=== PATIENT | male | born 1975 | race Caucasian/White ===

== ENCOUNTER 2016-10-20 15:33 | Emergency (ER) | payer BC ==
[2016-10-20] MEDS ORDERED: methylPREDNISolone Sodium Succinate 125 MG/2 ML SDV IM ONE (16:22)
--- NOTE | 2016-10-20 16:22 | EDM.PDOC ---
ED HPI GENERAL MEDICAL PROBLEM - General Chief Complaint: Respiratory Problem Stated Complaint: pain in between my shoulders, with breathing Time Seen by Provider: 10/20/16 15:40 Source of Information: Reports: Patient History Limitations: Reports: No Limitations - History of Present Illness Onset: Today, Gradual Duration: Hour(s): Location: Reports: Chest Quality: Reports: Stabbing Severity: Moderate Worsens with: Reports: Breathing Associated Symptoms: Reports: cough w sputum - Related Data Allergies Allergy/AdvReac Type Severity Reaction Status Date / Time No Known Allergies Allergy Verified 10/20/16 15:36 Home Meds: Home Meds Aspirin 325 mg PO DAILY 10/20/16 [History] Atenolol [Atenolol] 25 mg PO DAILY 10/20/16 [History] FLUoxetine [PROzac] 40 mg PO DAILY 10/20/16 [History] Ibuprofen 400 mg PO Q6H PRN 10/20/16 [History] Past Medical History HEENT History: Reports: Impaired Vision Cardiovascular History: Reports: Afib, Hypertension Respiratory History: Reports: Other (See Below) Other Respiratory History: pt has had cough for about 4 days, today starting with blood in sputum, 1.5 ppd smoker Musculoskeletal History: Reports: None 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 Social & Family History - Family History Family Medical History: Noncontributory HEENT: Reports: None Cardiac: Reports: Afib Respiratory: Reports: None GI: Reports: None : Reports: None OBGYN: Reports: None Musculoskeletal: Reports: None Neurological: Reports: None Psychiatric: Reports: None Endocrine/Metabolic: Reports: None Hematologic: Reports: None Immunologic: Reports: None Dermatologic: Reports: None Oncologic: Reports: None ED ROS GENERAL - Review of Systems Review Of Systems: See Below HEENT: Reports: No Symptoms Respiratory: Reports: Shortness of Breath, Cough, Other (Pain is worse with cough and depp breath. Pain is in same place each time) Cardiovascular: Reports: No Symptoms GI/Abdominal: Reports: No Symptoms ED EXAM, GENERAL - Physical Exam Exam: See Below Exam Limited By: No Limitations Throat/Mouth: Normal Oropharynx Neck: Supple Respiratory/Chest: Lungs Clear, Chest Non-Tender Cardiovascular: Regular Rate, Rhythm GI/Abdominal: Soft Back Exam: Normal Inspection Course - Orders/Labs/Meds Orders: Active Orders 24 hr Category Date Time Status EKG Documentation Completion [RC] ASDIRECTED Care 10/20/16 15:59 Active EKG Documentation Completion [RC] STAT Care 10/20/16 15:46 Active Chest 2V [CR] Stat Exams 10/20/16 15:47 Taken Labs: Laboratory Tests 10/20/16 Range/Units 15:50 WBC 7.9 (4.0-10.2) K/uL RBC 4.65 (4.33-5.41) M/uL Hgb 14.6 (13.1-16.8) g/dL Hct 41.6 (39.0-49.0) % MCV 89.5 (84.0-98.0) fL MCH 31.4 (28.2-33.3) pg MCHC 35.1 (31.7-36.0) g/dL RDW 12.2 (11.2-14.1) % Plt Count 248 (150-350) K/uL Neut % (Auto) 61.1 (45.0-80.0) % Lymph % (Auto) 22.1 (10.0-50.0) % [place] % (Auto) 14.8 H (2.0-14.0) % Eos % (Auto) 1.4 (0.0-5.0) % Baso % (Auto) 0.6 (0.0-2.0) % Neut # (Auto) 4.82 (1.40-7.00) K/uL Lymph # (Auto) 1.74 (0.50-3.50) K/uL [place] # (Auto) 1.17 H (0.00-1.00) K/uL Eos # (Auto) 0.11 (0.00-0.50) K/uL Baso # (Auto) 0.05 (0.00-0.20) K/uL Departure - Departure Time of Disposition: 16:30 Disposition: Home, Self-Care 01 Clinical Impression: Pleurisy - Discharge Information Forms: ED Department Discharge - My Orders Last 24 Hours: My Active Orders 10/20/16 15:46 EKG Documentation Completion [RC] STAT 10/20/16 15:47 Chest 2V [CR] Stat 10/20/16 15:59 EKG Documentation Completion [RC] ASDIRECTED - Assessment/Plan Last 24 Hours: My Active Orders 10/20/16 15:46 EKG Documentation Completion [RC] STAT 10/20/16 15:47 Chest 2V [CR] Stat 10/20/16 15:59 EKG Documentation Completion [RC] ASDIRECTED
[2016-10-20 16:38] VITALS: BP 151/87
== END 2016-10-20 16:50 | disposition home or self-care (01) ==
LOC: LL.ED 15:33
DX: R09.1 Pleurisy (principal); H54.7 Unspecified visual loss; I48.91 Unspecified atrial fibrillation; I10 Essential (primary) hypertension; Z79.82 Long term (current) use of aspirin; Z79.899 Other long term (current) drug therapy
CPT/HCPCS: 36415; 71020; 85025; 93005; 96372; 99284; J2930